=== PATIENT | female | born 1960 | race Caucasian/White ===

== ENCOUNTER 2020-10-24 20:21 | Inpatient (IN) | payer MEDICARE, OTHER ==
[~2020-10-24] VITALS: Ht 162.6 cm; Wt 83.0 kg
[2020-10-24] MEDS ORDERED: MAGN400O6 PO (20:48)
[2020-10-24] MEDS ORDERED: DOCU100C36 PO (20:48)
[2020-10-24] MEDS ORDERED: CYCL5TAB PO (20:48)
[2020-10-24] MEDS ORDERED: NA P133E RC (20:48)
[2020-10-24] MEDS ORDERED: RISP1TAB7 PO (20:48)
[2020-10-24] MEDS ORDERED: BISA10SU61 RC (20:48)
[2020-10-24] MEDS ORDERED: DIVA500T2 PO (20:48)
[2020-10-24] MEDS ORDERED: HYDR-3972 PO (20:48)
[2020-10-24] MEDS ORDERED: ACET-2154 PO (20:48)
[2020-10-24] MEDS ORDERED: LEVO25TA9 PO (20:48)
[2020-10-24 21:26] LABS: BASOPHILS # (AUTO) 0.1 K/uL (0.0-8.0); BASOPHILS % (AUTO) 0.9 % (0.0-2.0); EOSINOPHILS # (AUTO) 0.4 K/uL (0.0-0.7); EOSINOPHILS % (AUTO) 4.3 % (0.0-7.0); LYMPHOCYTES # (AUTO) 2.1 K/uL (20.0-40.0); LYMPHOCYTES % (AUTO) 22.7 % (20.5-51.5); MEAN CORPUSCULAR HEMOGLOBIN 31.1 uug (23.8-33.4); MEAN CORPUSCULAR HGB CONC 35 g/dL (32.5-36.3); MEAN CORPUSCULAR VOLUME 88.6 fL (73.0-96.2); MONOCYTES % (AUTO) 10.4 % (0.0-11.0); NEUTROPHILS # (AUTO) 5.7 K/uL (1.8-8.9); NEUTROPHILS % (AUTO) 61.7 % (38.5-71.5); PLATELET COUNT (AUTO) 253 K/uL (152-348); WHITE BLOOD COUNT (AUTO) 9.2 K/uL (3.6-10.2)
[2020-10-24 21:27] LABS: *BILIRUBIN,URIN NEGATIVE (NEGATIVE); *CLARITY,URINE CLEAR (CLEAR); *COLOR,URINE YELLOW (YELLOW); *KETONES,URINE NEGATIVE (NEGATIVE); *UROBILINOGEN,URINE 0.2 E.U./dl (NORMAL); LEUKOCYTE ESTERASE ,URINE TRACE (NEGATIVE); NITRITE, URINE NEGATIVE (NEGATIVE); PH,URINE 5.5 (5.0-8.0); UGLUCOSE NEGATIVE (NEGATIVE)
[2020-10-24 21:34] LABS: *AMPHETAMINE, URINE NEGATIVE (NEGATIVE); *CANNABINOID, URINE NEGATIVE (NEGATIVE); *COCCAINE, URINE NEGATIVE (NEGATIVE); *OPIATE, URINE POSITIVE (NEGATIVE); *PHENCYCLIDINE SCREEN,URINE NEGATIVE (NEGATIVE)
[2020-10-24 21:35] LABS: CARBON DIOXIDE 26 mmol/L (21-32); CHLORIDE 104 mmol/L (98-107); CREATININE 0.9 mg/dL (0.6-1.3); GLUCOSE 130 mg/dL (74-106); POTASSIUM 3.9 mmol/L (3.5-5.1); UREA NITROGEN, BLOOD 25 mg/dL (7-18)
[2020-10-24 21:36] LABS: *BLOOD, URINE TRACE INTACT (NEGATIVE); HEMATOCRIT 33.2 % (31.2-41.9); HEMOGLOBIN 11.6 g/dL (10.9-14.3); RED BLOOD CELL COUNT(AUTO) 3.75 MIL/uL (3.63-4.92)
[2020-10-24 21:40] LABS: SQUAMOUS EPITHELIAL CELL,UR FEW /HPF (NONE SEEN)
[2020-10-24 21:42] LABS: ETHANOL < 3 MG/DL (0-0)
[2020-10-24 21:48] LABS: ALANINE AMINOTRANSFERASE 18 U/L (14-59); ALKALINE PHOSPHATASE 71 U/L (50-136); ASPARTATE AMINOTRANSFERASE 9 U/L (15-37); BILIRUBIN,DIRECT < 0.1 mg/dL (0.0-0.2); BILIRUBIN,TOTAL 0.1 mg/dL (0.2-1.0); TOTAL PROTEIN, SERUM 7.8 g/dL (6.4-8.2)
[2020-10-24 21:54] LABS: ACETAMINOPHEN < 2.0 ug/mL (10-30)
[2020-10-24] MEDS ORDERED: LORAZEPAM 2 MG/1 ML VIAL ONE (23:39)
[2020-10-24] MEDS ORDERED: HALOPERIDOL LACTATE 5 MG/1 ML VIAL ONE (23:39)
[2020-10-24] MEDS ORDERED: HALOPERIDOL LACTATE 5 MG/1 ML VIAL IM ONE (23:45)
[2020-10-24] MEDS ORDERED: LORAZEPAM 2 MG/1 ML VIAL IM ONE (23:45)
[2020-10-25] MEDS ORDERED: MAGNESIUM HYDROXIDE 30 ML LIQUID UDC PO PRN (00:45)
[2020-10-25] MEDS: TEMAZEPAM 7.5 MG CAPSULE PO PRN ×2 (01:05→20:32)
[2020-10-25] MEDS: ACETAMINOPHEN 325 MG TABLET PO PRN ×3 (01:05→20:31)
[2020-10-25 07:30] VITALS: BP 99/80
[2020-10-25] MEDS: CEphaleXIN 500 MG CAPSULE PO SCH ×2 (10:08→20:31)
[2020-10-25] MEDS: NICOTINE 14 MG/24HR PATCH TD SCH (10:08)
[2020-10-25] MEDS: MAG HYDROX/AL HYDROX/SIMETH 30 ML LIQUID UDC PO PRN (13:13)
[2020-10-25] MEDS: LORAZEPAM 0.5 MG TABLET PO PRN (14:40)
[2020-10-25 16:00] VITALS: BP 122/71
[2020-10-25] MEDS: DOCUSATE SODIUM 100 MG CAPSULE PO SCH (17:57)
[2020-10-25] MEDS: CYCLOBENZAPRINE HCL 10 MG TABLET PO SCH (17:57)
[2020-10-25] MEDS: ARIPIPRAZOLE 2 MG TABLET PO SCH (17:59)
[2020-10-25] MEDS: DIVALPROEX 250 MG TABLET.DR PO SCH (17:59)
[2020-10-25 21:20] VITALS: BP 109/79
[2020-10-26] MEDS: LEVOTHYROXINE SODIUM 25 MCG TABLET PO SCH (06:03)
[2020-10-26] MEDS: CEphaleXIN 500 MG CAPSULE PO SCH ×2 (06:32→18:47)
[2020-10-26 07:30] VITALS: BP 122/78
[2020-10-26] MEDS: LORAZEPAM 0.5 MG TABLET PO PRN ×4 (08:39→21:15)
[2020-10-26] MEDS: NICOTINE 14 MG/24HR PATCH TD SCH (08:40)
[2020-10-26] MEDS: DOCUSATE SODIUM 100 MG CAPSULE PO SCH ×2 (08:40→16:51)
[2020-10-26] MEDS: ARIPIPRAZOLE 2 MG TABLET PO SCH ×2 (08:40→16:51)
[2020-10-26] MEDS: CYCLOBENZAPRINE HCL 10 MG TABLET PO SCH ×3 (08:40→16:50)
[2020-10-26] MEDS: DIVALPROEX 250 MG TABLET.DR PO SCH ×3 (08:40→16:50)
[2020-10-26] MEDS: ACETAMINOPHEN 325 MG TABLET PO PRN ×2 (10:26→17:00)
[2020-10-26 16:46] VITALS: BP 130/71
[2020-10-26] MEDS: TEMAZEPAM 7.5 MG CAPSULE PO PRN (21:15)
[2020-10-27] MEDS: ACETAMINOPHEN 325 MG TABLET PO PRN ×3 (00:43→20:13)
[2020-10-27] MEDS ORDERED: OLANZAPINE 10 MG VIAL IM ONE (01:00)
[2020-10-27] MEDS ORDERED: LORAZEPAM 2 MG/1 ML VIAL IM ONE (01:00)
[2020-10-27] MEDS: LORAZEPAM 0.5 MG TABLET PO PRN ×5 (02:13→20:13)
[2020-10-27] MEDS: LEVOTHYROXINE SODIUM 25 MCG TABLET PO SCH (06:19)
[2020-10-27] MEDS: CEphaleXIN 500 MG CAPSULE PO SCH ×2 (06:33→20:56)
[2020-10-27 07:30] VITALS: BP 126/89
[2020-10-27] MEDS: DOCUSATE SODIUM 100 MG CAPSULE PO SCH ×2 (08:05→16:27)
[2020-10-27] MEDS: NICOTINE 14 MG/24HR PATCH TD SCH (08:05)
[2020-10-27] MEDS: DIVALPROEX 250 MG TABLET.DR PO SCH ×3 (08:11→16:21)
[2020-10-27] MEDS: ARIPIPRAZOLE 2 MG TABLET PO SCH ×2 (08:11→16:21)
[2020-10-27] MEDS: CYCLOBENZAPRINE HCL 10 MG TABLET PO SCH ×3 (08:11→16:21)
[2020-10-27] MEDS: SIMVASTATIN 20 MG TABLET PO SCH (20:13)
[2020-10-27] MEDS: TEMAZEPAM 7.5 MG CAPSULE PO PRN (21:12)
[2020-10-27] MEDS: MAG HYDROX/AL HYDROX/SIMETH 30 ML LIQUID UDC PO PRN (22:18)
[2020-10-28] MEDS: LORAZEPAM 0.5 MG TABLET PO PRN ×3 (00:21→19:27)
[2020-10-28] MEDS ORDERED: OLANZAPINE 10 MG VIAL IM STA (00:58)
[2020-10-28] MEDS ORDERED: LORAZEPAM 2 MG/1 ML VIAL IM STA (00:58)
[2020-10-28] MEDS: MAG HYDROX/AL HYDROX/SIMETH 30 ML LIQUID UDC PO PRN (06:00)
[2020-10-28] MEDS: LEVOTHYROXINE SODIUM 25 MCG TABLET PO SCH (06:00)
[2020-10-28] MEDS: CEphaleXIN 500 MG CAPSULE PO SCH ×2 (06:30→18:44)
[2020-10-28 07:30] VITALS: BP 120/87
[2020-10-28] MEDS: CYCLOBENZAPRINE HCL 10 MG TABLET PO SCH ×3 (08:36→16:48)
[2020-10-28] MEDS: DOCUSATE SODIUM 100 MG CAPSULE PO SCH ×2 (08:37→16:48)
[2020-10-28] MEDS: NICOTINE 14 MG/24HR PATCH TD SCH (08:37)
[2020-10-28] MEDS: DIVALPROEX 250 MG TABLET.DR PO SCH ×3 (08:37→16:48)
[2020-10-28] MEDS: ARIPIPRAZOLE 2 MG TABLET PO SCH ×2 (08:37→16:48)
[2020-10-28] MEDS ORDERED: LORAZEPAM 2 MG/1 ML VIAL IM ONE (10:30)
[2020-10-28] MEDS ORDERED: OLANZAPINE 10 MG VIAL IM ONE (10:30)
[2020-10-28] MEDS: ACETAMINOPHEN 325 MG TABLET PO PRN ×2 (12:01→21:58)
[2020-10-28 16:00] VITALS: BP 124/95
[2020-10-28] MEDS: SIMVASTATIN 20 MG TABLET PO SCH (20:09)
[2020-10-28] MEDS: TEMAZEPAM 7.5 MG CAPSULE PO PRN (21:34)
[2020-10-29] MEDS: LORAZEPAM 0.5 MG TABLET PO PRN ×4 (00:23→19:25)
[2020-10-29] MEDS: CEphaleXIN 500 MG CAPSULE PO SCH ×2 (06:40→18:38)
[2020-10-29] MEDS: LEVOTHYROXINE SODIUM 25 MCG TABLET PO SCH (06:54)
[2020-10-29 07:30] VITALS: BP 126/93
[2020-10-29] MEDS: DOCUSATE SODIUM 100 MG CAPSULE PO SCH ×2 (08:20→16:33)
[2020-10-29] MEDS: DIVALPROEX 250 MG TABLET.DR PO SCH ×3 (08:20→16:34)
[2020-10-29] MEDS: CYCLOBENZAPRINE HCL 10 MG TABLET PO SCH ×3 (08:20→16:33)
[2020-10-29] MEDS: NICOTINE 14 MG/24HR PATCH TD SCH (08:20)
[2020-10-29] MEDS: ARIPIPRAZOLE 5 MG TABLET PO SCH ×2 (08:20→16:33)
[2020-10-29] MEDS ORDERED: ARIPIPRAZOLE 2 MG TABLET PO SCH (09:00)
[2020-10-29] MEDS: ACETAMINOPHEN 325 MG TABLET PO PRN (14:57)
[2020-10-29 16:00] VITALS: BP 130/85
[2020-10-29] MEDS: MAG HYDROX/AL HYDROX/SIMETH 30 ML LIQUID UDC PO PRN (18:00)
[2020-10-29] MEDS: SIMVASTATIN 20 MG TABLET PO SCH (20:09)
[2020-10-29] MEDS ORDERED: DIVALPROEX 250 MG TABLET.DR PO SCH (21:00)
[2020-10-29] MEDS: TEMAZEPAM 7.5 MG CAPSULE PO PRN (21:28)
[2020-10-30] MEDS: LORAZEPAM 0.5 MG TABLET PO PRN ×4 (01:44→23:13)
[2020-10-30] MEDS: ACETAMINOPHEN 325 MG TABLET PO PRN ×3 (06:10→18:46)
[2020-10-30] MEDS: LEVOTHYROXINE SODIUM 25 MCG TABLET PO SCH (06:16)
[2020-10-30] MEDS: CEphaleXIN 500 MG CAPSULE PO SCH ×2 (07:02→18:33)
[2020-10-30 07:30] VITALS: BP 125/86
[2020-10-30] MEDS: CYCLOBENZAPRINE HCL 10 MG TABLET PO SCH ×3 (08:18→16:11)
[2020-10-30] MEDS: ARIPIPRAZOLE 5 MG TABLET PO SCH ×2 (08:18→16:12)
[2020-10-30] MEDS: DIVALPROEX 500 MG TABLET.DR PO SCH ×2 (08:18→20:25)
[2020-10-30] MEDS: DOCUSATE SODIUM 100 MG CAPSULE PO SCH ×2 (08:18→16:12)
[2020-10-30] MEDS: NICOTINE 14 MG/24HR PATCH TD SCH (08:19)
[2020-10-30] MEDS: MAG HYDROX/AL HYDROX/SIMETH 30 ML LIQUID UDC PO PRN (09:46)
[2020-10-30 15:20] VITALS: BP 145/95
[2020-10-30] MEDS ORDERED: LORAZEPAM 2 MG/1 ML VIAL IV STA (19:39)
[2020-10-30] MEDS ORDERED: HALOPERIDOL LACTATE 5 MG/1 ML VIAL IM STA (19:39)
[2020-10-30] MEDS ORDERED: diphenhydrAMINE 50 MG/1 ML VIAL IM STA (19:39)
[2020-10-30] MEDS ORDERED: LORAZEPAM 2 MG/1 ML VIAL IM STA (19:43)
[2020-10-30] MEDS: SIMVASTATIN 20 MG TABLET PO SCH (20:25)
[2020-10-30 20:51] VITALS: BP 98/72
[2020-10-30] MEDS: TEMAZEPAM 7.5 MG CAPSULE PO PRN (21:10)
[2020-10-31] MEDS: LEVOTHYROXINE SODIUM 25 MCG TABLET PO SCH (06:19)
[2020-10-31] MEDS: CEphaleXIN 500 MG CAPSULE PO SCH ×2 (06:31→20:08)
[2020-10-31 07:30] VITALS: BP_SYST 126; BP_SYST 130; BP_DIAS 58; BP_DIAS 84
[2020-10-31] MEDS: LORAZEPAM 0.5 MG TABLET PO PRN ×3 (07:38→21:46)
[2020-10-31] MEDS: ACETAMINOPHEN 325 MG TABLET PO PRN ×3 (07:38→21:46)
[2020-10-31] MEDS: ARIPIPRAZOLE 5 MG TABLET PO SCH ×2 (08:44→16:42)
[2020-10-31] MEDS: CYCLOBENZAPRINE HCL 10 MG TABLET PO SCH ×3 (08:44→16:42)
[2020-10-31] MEDS: DOCUSATE SODIUM 100 MG CAPSULE PO SCH ×2 (08:45→16:42)
[2020-10-31] MEDS: NICOTINE 14 MG/24HR PATCH TD SCH (08:45)
[2020-10-31] MEDS: DIVALPROEX 500 MG TABLET.DR PO SCH ×2 (08:45→18:13)
[2020-10-31] MEDS: MAG HYDROX/AL HYDROX/SIMETH 30 ML LIQUID UDC PO PRN (12:52)
[2020-10-31 16:00] VITALS: BP 119/87
[2020-10-31] MEDS: SIMVASTATIN 20 MG TABLET PO SCH (20:08)
[2020-10-31] MEDS: TEMAZEPAM 7.5 MG CAPSULE PO PRN (20:59)
[2020-10-31 21:16] VITALS: BP 97/77
[2020-11-01] MEDS: LORAZEPAM 0.5 MG TABLET PO PRN ×2 (03:50→23:16)
[2020-11-01] MEDS: ACETAMINOPHEN 325 MG TABLET PO PRN ×3 (05:30→21:17)
[2020-11-01] MEDS: LEVOTHYROXINE SODIUM 25 MCG TABLET PO SCH (06:22)
[2020-11-01] MEDS: MAG HYDROX/AL HYDROX/SIMETH 30 ML LIQUID UDC PO PRN ×3 (06:24→23:16)
[2020-11-01] MEDS: CEphaleXIN 500 MG CAPSULE PO SCH ×2 (06:32→18:41)
[2020-11-01 07:58] VITALS: BP 129/88
[2020-11-01] MEDS: CYCLOBENZAPRINE HCL 10 MG TABLET PO SCH ×3 (08:46→16:29)
[2020-11-01] MEDS: DIVALPROEX 500 MG TABLET.DR PO SCH ×3 (08:46→16:29)
[2020-11-01] MEDS: DOCUSATE SODIUM 100 MG CAPSULE PO SCH ×2 (08:51→16:28)
[2020-11-01] MEDS: NICOTINE 14 MG/24HR PATCH TD SCH (08:52)
[2020-11-01] MEDS ORDERED: ARIPIPRAZOLE 5 MG TABLET PO SCH (09:00)
[2020-11-01] MEDS: ASPIRIN 81 MG TAB.CHEW PO SCH (11:29)
[2020-11-01 16:00] VITALS: BP 125/72
[2020-11-01] MEDS: ARIPIPRAZOLE 5 MG TABLET PO SCH (16:29)
[2020-11-01] MEDS: SIMVASTATIN 40 MG TABLET PO SCH (20:03)
[2020-11-01 20:34] VITALS: BP 110/80
[2020-11-01] MEDS: TEMAZEPAM 7.5 MG CAPSULE PO PRN (21:18)
[2020-11-02] MEDS ORDERED: OLANZAPINE 10 MG VIAL IM ONE ×2 (02:00→14:30)
[2020-11-02] MEDS ORDERED: LORAZEPAM 2 MG/1 ML VIAL IM ONE ×2 (02:00→23:45)
[2020-11-02] MEDS: LEVOTHYROXINE SODIUM 25 MCG TABLET PO SCH (06:02)
[2020-11-02 07:30] VITALS: BP 136/89
[2020-11-02] MEDS: CYCLOBENZAPRINE HCL 10 MG TABLET PO SCH ×3 (08:17→16:20)
[2020-11-02] MEDS: ASPIRIN 81 MG TAB.CHEW PO SCH (08:17)
[2020-11-02] MEDS: DIVALPROEX 500 MG TABLET.DR PO SCH ×3 (08:17→16:18)
[2020-11-02] MEDS: ARIPIPRAZOLE 5 MG TABLET PO SCH ×2 (08:18→16:20)
[2020-11-02] MEDS: DOCUSATE SODIUM 100 MG CAPSULE PO SCH ×2 (08:22→16:20)
[2020-11-02] MEDS: NICOTINE 14 MG/24HR PATCH TD SCH (08:22)
[2020-11-02] MEDS: ACETAMINOPHEN 325 MG TABLET PO PRN ×3 (08:25→22:56)
[2020-11-02] MEDS: MAG HYDROX/AL HYDROX/SIMETH 30 ML LIQUID UDC PO PRN (11:47)
[2020-11-02] MEDS ORDERED: diphenhydrAMINE 50 MG/1 ML VIAL IM ONE ×2 (14:30→23:45)
[2020-11-02] MEDS ORDERED: chlorproMAZINE 50 MG/2 ML AMPUL IM ONE ×2 (14:30→23:45)
[2020-11-02 16:00] VITALS: BP 125/90
[2020-11-02] MEDS: OLANZAPINE ZYDIS 5 MG TAB.RAPDIS PO SCH (19:08)
[2020-11-02] MEDS: SIMVASTATIN 40 MG TABLET PO SCH (20:07)
[2020-11-02 20:19] VITALS: BP 132/82
[2020-11-02] MEDS: TEMAZEPAM 7.5 MG CAPSULE PO PRN (20:59)
[2020-11-02] MEDS: LORAZEPAM 1 MG TABLET PO PRN (22:54)
[2020-11-03] MEDS ORDERED: chlorproMAZINE 50 MG/2 ML AMPUL ONE
[2020-11-03] MEDS: LEVOTHYROXINE SODIUM 25 MCG TABLET PO SCH (06:03)
[2020-11-03 07:30] VITALS: BP 133/88
[2020-11-03] MEDS: ARIPIPRAZOLE 5 MG TABLET PO SCH (08:03)
[2020-11-03] MEDS: CYCLOBENZAPRINE HCL 10 MG TABLET PO SCH ×3 (08:04→16:05)
[2020-11-03] MEDS: NICOTINE 14 MG/24HR PATCH TD SCH (08:04)
[2020-11-03] MEDS: DIVALPROEX 500 MG TABLET.DR PO SCH ×3 (08:04→16:05)
[2020-11-03] MEDS: ASPIRIN 81 MG TAB.CHEW PO SCH (08:04)
[2020-11-03] MEDS: OLANZAPINE ZYDIS 5 MG TAB.RAPDIS PO SCH ×2 (08:04→16:05)
[2020-11-03] MEDS: DOCUSATE SODIUM 100 MG CAPSULE PO SCH ×2 (08:05→16:01)
[2020-11-03] MEDS ORDERED: LORAZEPAM 2 MG/1 ML VIAL IM ONE (10:30)
[2020-11-03] MEDS ORDERED: chlorproMAZINE 50 MG/2 ML AMPUL IM ONE (10:30)
[2020-11-03] MEDS ORDERED: diphenhydrAMINE 50 MG/1 ML VIAL IM ONE (10:30)
[2020-11-03] MEDS: ACETAMINOPHEN 325 MG TABLET PO PRN ×2 (12:42→18:22)
[2020-11-03] MEDS: HALOPERIDOL 5 MG TABLET PO SCH (16:05)
[2020-11-03 16:31] VITALS: BP 123/84
[2020-11-03] MEDS: CLONAZEPAM 0.5 MG TABLET PO SCH (18:22)
[2020-11-03] MEDS: SIMVASTATIN 40 MG TABLET PO SCH (20:27)
[2020-11-03] MEDS: LORAZEPAM 1 MG TABLET PO PRN (20:32)
[2020-11-03 20:46] VITALS: BP 125/89
[2020-11-03] MEDS: TEMAZEPAM 7.5 MG CAPSULE PO PRN (21:39)
[2020-11-04] MEDS: ACETAMINOPHEN 325 MG TABLET PO PRN ×2 (00:25→14:32)
[2020-11-04] MEDS: LEVOTHYROXINE SODIUM 25 MCG TABLET PO SCH (06:03)
[2020-11-04 07:30] VITALS: BP 161/71
[2020-11-04] MEDS: CYCLOBENZAPRINE HCL 10 MG TABLET PO SCH ×3 (08:13→16:22)
[2020-11-04] MEDS: ASPIRIN 81 MG TAB.CHEW PO SCH (08:13)
[2020-11-04] MEDS: DIVALPROEX 500 MG TABLET.DR PO SCH ×3 (08:14→16:22)
[2020-11-04] MEDS: CLONAZEPAM 0.5 MG TABLET PO SCH ×3 (08:14→16:21)
[2020-11-04] MEDS: OLANZAPINE ZYDIS 5 MG TAB.RAPDIS PO SCH ×3 (08:14→16:21)
[2020-11-04] MEDS: NICOTINE 14 MG/24HR PATCH TD SCH (08:14)
[2020-11-04] MEDS: HALOPERIDOL 5 MG TABLET PO SCH ×2 (08:14→16:21)
[2020-11-04] MEDS: DOCUSATE SODIUM 100 MG CAPSULE PO SCH ×2 (08:14→16:23)
[2020-11-04 15:12] VITALS: BP 122/79
[2020-11-04] MEDS: LORAZEPAM 1 MG TABLET PO PRN (19:35)
[2020-11-04] MEDS: SIMVASTATIN 40 MG TABLET PO SCH (19:35)
[2020-11-04 20:00] VITALS: BP 113/84
[2020-11-04] MEDS: TEMAZEPAM 7.5 MG CAPSULE PO PRN (20:53)
[2020-11-04] MEDS: HYDROCODONE/APAP 5-325MG TABLET PO PRN (23:36)
[2020-11-04] MEDS: MAG HYDROX/AL HYDROX/SIMETH 30 ML LIQUID UDC PO PRN (23:37)
[2020-11-05] MEDS: LEVOTHYROXINE SODIUM 25 MCG TABLET PO SCH (06:29)
[2020-11-05 07:30] VITALS: BP 140/91
[2020-11-05] MEDS: LORAZEPAM 1 MG TABLET PO PRN ×3 (07:54→22:27)
[2020-11-05] MEDS: ASPIRIN 81 MG TAB.CHEW PO SCH (08:35)
[2020-11-05] MEDS: OLANZAPINE ZYDIS 5 MG TAB.RAPDIS PO SCH ×3 (08:35→16:48)
[2020-11-05] MEDS: DIVALPROEX 500 MG TABLET.DR PO SCH ×3 (08:35→16:48)
[2020-11-05] MEDS: CLONAZEPAM 0.5 MG TABLET PO SCH ×3 (08:35→16:48)
[2020-11-05] MEDS: DOCUSATE SODIUM 100 MG CAPSULE PO SCH ×2 (08:35→16:48)
[2020-11-05] MEDS: CYCLOBENZAPRINE HCL 10 MG TABLET PO SCH ×3 (08:35→16:48)
[2020-11-05] MEDS: HALOPERIDOL 5 MG TABLET PO SCH ×2 (08:35→16:48)
[2020-11-05] MEDS: NICOTINE 14 MG/24HR PATCH TD SCH (08:36)
[2020-11-05] MEDS: ACETAMINOPHEN 325 MG TABLET PO PRN ×2 (11:10→23:59)
[2020-11-05] MEDS: MAG HYDROX/AL HYDROX/SIMETH 30 ML LIQUID UDC PO PRN ×2 (16:00→22:00)
[2020-11-05 16:05] VITALS: BP 112/75
[2020-11-05 20:03] VITALS: BP 136/72
[2020-11-05] MEDS: SIMVASTATIN 40 MG TABLET PO SCH (20:10)
[2020-11-05] MEDS: HYDROCODONE/APAP 5-325MG TABLET PO PRN (20:15)
[2020-11-05] MEDS: TEMAZEPAM 7.5 MG CAPSULE PO PRN (20:58)
[2020-11-06] MEDS: LORAZEPAM 1 MG TABLET PO PRN ×2 (04:35→07:56)
[2020-11-06] MEDS: LEVOTHYROXINE SODIUM 25 MCG TABLET PO SCH (06:01)
[2020-11-06 07:30] VITALS: BP 148/96
[2020-11-06] MEDS: HYDROCODONE/APAP 5-325MG TABLET PO PRN ×2 (07:56→19:53)
[2020-11-06] MEDS: OLANZAPINE ZYDIS 5 MG TAB.RAPDIS PO SCH ×3 (08:36→16:46)
[2020-11-06] MEDS: ASPIRIN 81 MG TAB.CHEW PO SCH (08:36)
[2020-11-06] MEDS: CLONAZEPAM 0.5 MG TABLET PO SCH ×3 (08:37→16:46)
[2020-11-06] MEDS: HALOPERIDOL 5 MG TABLET PO SCH ×2 (08:37→16:46)
[2020-11-06] MEDS: NICOTINE 14 MG/24HR PATCH TD SCH (08:37)
[2020-11-06] MEDS: DIVALPROEX 500 MG TABLET.DR PO SCH ×3 (08:37→16:46)
[2020-11-06] MEDS: CYCLOBENZAPRINE HCL 10 MG TABLET PO SCH ×3 (08:37→16:45)
[2020-11-06] MEDS: DOCUSATE SODIUM 100 MG CAPSULE PO SCH ×2 (08:37→16:46)
[2020-11-06] MEDS: ACETAMINOPHEN 325 MG TABLET PO PRN ×2 (11:55→18:03)
[2020-11-06 15:16] VITALS: BP 105/78
[2020-11-06] MEDS: SIMVASTATIN 40 MG TABLET PO SCH (20:03)
[2020-11-06 20:35] VITALS: BP 136/78
[2020-11-06] MEDS: TEMAZEPAM 7.5 MG CAPSULE PO PRN (21:52)
[2020-11-07] MEDS: LORAZEPAM 1 MG TABLET PO PRN ×2 (01:40→08:17)
[2020-11-07] MEDS: ACETAMINOPHEN 325 MG TABLET PO PRN (02:14)
[2020-11-07] MEDS: LEVOTHYROXINE SODIUM 25 MCG TABLET PO SCH (06:01)
[2020-11-07 07:30] VITALS: BP 132/77
[2020-11-07] MEDS: HYDROCODONE/APAP 5-325MG TABLET PO PRN (08:16)
[2020-11-07] MEDS: CLONAZEPAM 0.5 MG TABLET PO SCH (08:36)
[2020-11-07] MEDS: CYCLOBENZAPRINE HCL 10 MG TABLET PO SCH (08:36)
[2020-11-07] MEDS: DOCUSATE SODIUM 100 MG CAPSULE PO SCH (08:36)
[2020-11-07] MEDS: ASPIRIN 81 MG TAB.CHEW PO SCH (08:36)
[2020-11-07] MEDS: DIVALPROEX 500 MG TABLET.DR PO SCH (08:37)
[2020-11-07] MEDS: HALOPERIDOL 5 MG TABLET PO SCH (08:37)
[2020-11-07] MEDS: NICOTINE 14 MG/24HR PATCH TD SCH (08:37)
[2020-11-07] MEDS: OLANZAPINE ZYDIS 5 MG TAB.RAPDIS PO SCH (08:37)
== END 2020-11-07 11:45 | DRG 885 ==
LOC: EDSEX 20:23 → ER 20:23 → GPS 23:55
PROVIDERS: ADMIT Psychiatry & Neurology Psychiatry; ATTEND Nurse Practitioner Acute Care
DX: F25.0 Schizoaffective disorder, bipolar type (principal); N39.0 Urinary tract infection, site not specified; D68.69 Other thrombophilia; Z20.822 Contact with and (suspected) exposure to COVID-19; J44.9 Chronic obstructive pulmonary disease, unspecified; M62.50 Muscle wasting and atrophy, not elsewhere classified, unspecified site; F41.9 Anxiety disorder, unspecified; E78.5 Hyperlipidemia, unspecified; E03.9 Hypothyroidism, unspecified; M19.90 Unspecified osteoarthritis, unspecified site; M81.0 Age-related osteoporosis without current pathological fracture; Z73.6 Limitation of activities due to disability; R73.9 Hyperglycemia, unspecified; F29 Unspecified psychosis not due to a substance or known physiological condition; F60.9 Personality disorder, unspecified
CPT/HCPCS: 36415; 71045; 80164; 84443; 85025; 93005; A4663; G0480; J1200; J1630; J2060; J2358; J3230; J3490; U0003